=== PATIENT | male | born 1945 | race Caucasian/White ===

== ENCOUNTER 2017-07-03 11:46 | Emergency (ER) | payer MEDICARE, OTHER, SELFPAY ==
[2017-07-03 11:55] VITALS: BP 166/83; PULSE 60; RESP 16; TEMP 37.1; O2SAT 96; BMI 31.5
--- NOTE | 2017-07-03 12:12 | HMH.EDABDPAI ---
ED Disposition Clinical Impression: Calculus of kidney Disposition: Home, Self-Care Condition on Discharge: Good Instructions: DI for Acute Abdomen, DI for Kidney Stones Additional Instructions: Filter urine; if ANY concerns (such as intractable pain, unable to urinate, fever, any concerns at all) call [facility]rologist and let them know we spoke with Dr. Torres today. Telephone number is [phone]. Rx Percocet for intractable pain, Naproxen for mild pain, Zofran for vomiting. Dr. Torres's office will set up appointment for three days from , Thursday, July 06, 2017. Prescriptions: Oxycodone HCl/Acetaminophen [Percocet 5/325mg tablet] 2 tab PO Q6HP PRN #20 tab PRN Reason: Severe Pain Naproxen [EC-Naprosyn] 500 mg PO BID PRN #[address] MCLAIN Reason: pain Ondansetron [Zofran 4mg ODT] 4 mg PO TIDP PRN #10 tab.rapdis PRN Reason: nausea Referrals: Provider,Referral, MD [Primary Care Provider] - - Critical Care Critical Care Time: No Attestation: On 07/03/17, the high probability of a clinically significant, sudden or life threatening deterioration of the following system(s) required my full and direct attention, intervention and personal management. The time I documented below is in addition to time spent performing reported procedures but includes the following listed in this critical care notation. Medical Decision Making Vital Signs: 07/03/17 11:55 Temperature 98.7 F Temperature Source Oral Pulse Rate [Right Brachial] 60 Respiratory Rate 16 Blood Pressure [Right Arm] 166/83 Blood Pressure Mean [Right Arm] 110 Blood Pressure Source [Right Arm] Automatic Cuff Blood Pressure Position [Right Arm] Sitting 02 Sat by Pulse Oximetry 96 Oxygen Delivery Method Room Air - Lab Data Lab Results 07/03/17 12:30: Urine Color Yellow, Urine Appearance Clear, Urine pH 6.0, Ur Specific [place] >= 1.030, Urine Protein 100, Urine Glucose (UA) 250, Urine Ketones Trace, Urine Blood Trace-i, Urine Nitrate Negative, Urine Bilirubin Negative, Urine Urobilinogen 0.2, Ur Leukocyte Esterase Negative, Urine RBC 3-5, Urine WBC Occasional, Ur Squamous Epith Cells Occasional, Urine Bacteria 1+, Urine Mucus 1+ 07/03/17 12:45: WBC 12.0 H, RBC 4.11 L, Hgb 12.7 L, Hct 39.1 L, MCV 95.1 H, MCH 30.9, MCHC 32.5, RDW 13.6, Plt Count 208, MPV 8.0, Neut % (Auto) 82.2 H, Lymph % (Auto) 9.8 L, [place] % (Auto) 6.1, Eos % (Auto) 1.7, Baso % (Auto) 0.2, Neut # (Auto) 9.9 H, Lymph # (Auto) 1.2, [place] # (Auto) 0.7, Eos # (Auto) 0.2, Baso # (Auto) 0.0 07/03/17 12:45: BUN 15, Creatinine 1.53 H, Estimated Creat Clear 61, Estimated GFR 45 L, Est GFR ( Amer) 54 L Result diagrams: 07/03/17 12:45 07/03/17 12:45 Orders (Tests/Meds): ORDERS Category Date Time Status Amylase Stat Lab 07/03/17 12:45 Received Comprehensive Metabolic Panel Stat Lab 07/03/17 12:45 Received Lipase Stat Lab 07/03/17 12:45 Received - CT Data CT Scan: Abdomen, Pelvis Time Received: 13:[address] Reviewed: Yes: I have reviewed the patient's CT results - Physician Consults Physician Consulted: Dr. Torres Urology Reason -: Pt condition Comment/Response: Dr. Torres's office will call to schedule outpatient visit and surgery; ok to discharge with [facility] number in case any problems over the weekend - Blaise Inquiry Pt receiving controlled substance: Yes Blaise was queried for this patient: Yes Reference #:: [id number] Risks and benefits of using a controlled substance: were discussed with pt by me Abdominal Pain HPI - General Chief Complaint: Abdominal Pain Stated Complaint: left side pain Time Seen by Provider: 07/03/17 12:12 Mode of Arrival: Ambulatory Limitations: No Limitations Description of Symptoms (Recalled from ER Triage Doc. by RN): PT C/O LLQ PAIN THAT HAS BEEN ON AND OFF X4 DAYS BUT ADVISES THAT THE PAIN BECOME SEVERE LAST NIGHT - History of Present Illness HPI narrative: Sharp, intermittent left lower quadrant abdominal pain for the
--- NOTE | 2017-07-03 12:17 | CT_ITS ---
CT abdomen pelvis wo con CLINICAL INDICATION: Left lower quadrant pain ITS.REASON: LEFT PAIN ORDERING PHYSICIAN: Guillermina Mac MD PATIENT AGE: 71 years COMPARISON: None TECHNIQUE: Axial images obtained with sagittal and coronal reformats. PROCEDURE: Oral Contrast: None IV Contrast: None . FINDINGS: There are atelectatic changes in the lung bases. There are coronary artery calcifications. No focal liver lesion evident. Small hyperdensity is present along the posterior aspect of the gallbladder suggesting gallstones. The spleen and adrenal glands are unremarkable. There is a small hiatal hernia. Pancreas has an unremarkable unenhanced CT appearance. There is an 11 x 7 mm stone at the left ureterovesical junction causing moderate left hydronephrosis and hydroureter with stranding of the left perinephric and periureteral fat. There are bilateral renal cysts the largest on the left measuring up to 6 cm. Small area of hyperdensity is present in the lower pole the left kidney and may represent a hyperdense cyst at 1 cm There is mild fusiform dilatation of the mid abdominal aorta measuring up to 3.3 cm transverse and 3.1 cm AP. No evidence of retroperitoneal hemorrhage. There is mild dilatation of the proximal left common iliac measuring up to 1.9 cm and mild dilatation of the distal right common iliac measuring up to 1.9 cm. Reported prior appendectomy. There is diffuse diverticulosis of the descending and sigmoid colon. No evidence of diverticulitis. No intestinal obstruction or free air. No pelvic mass or focal inflammatory change evident. No acute bony anomalies. There are degenerative changes in the lumbar spine. IMPRESSION: 1. 11 x 7 mm left ureterovesical junction stone with moderate hydroureteronephrosis. 2. 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 3. Sigmoid diverticulosis. No evidence of diverticulitis. 4. Bilateral renal cysts
--- NOTE | 2017-07-03 12:17 | ED_ITS ---
ED Disposition Clinical Impression: Calculus of kidney Disposition: Home, Self-Care Condition on Discharge: Good Instructions: DI for Acute Abdomen, DI for Kidney Stones Additional Instructions: Filter urine; if ANY concerns (such as intractable pain, unable to urinate, fever, any concerns at all) call [facility] urologist and let them know we spoke with Dr. Torres today. Telephone number is [phone]. Rx Percocet for intractable pain, Naproxen for mild pain, Zofran for vomiting. Dr. Torres's office will set up appointment for three days from , Thursday, July 06, 2017. Prescriptions: Oxycodone HCl/Acetaminophen [Percocet 5/325mg tablet] 2 tab PO Q6HP PRN # 20 tab PRN Reason: Severe Pain Naproxen [EC-Naprosyn] 500 mg PO BID PRN #[address] tablet[address] MCLAIN Reason: pain Ondansetron [Zofran 4mg ODT] 4 mg PO TIDP PRN #10 tab.rapdis PRN Reason: nausea Referrals: Provider,Referral, MD [Primary Care Provider] - - Critical Care Critical Care Time: No Attestation: On 07/03/17, the high probability of a clinically significant, sudden or life threatening deterioration of the following system(s) required my full and direct attention, intervention and personal management. The time I documented below is in addition to time spent performing reported procedures but includes the following listed in this critical care notation. Medical Decision Making Vital Signs: 07/03/17 11:55 Temperature 98.7 F Temperature Source Oral Pulse Rate [Right Brachial] 60 Respiratory Rate 16 Blood Pressure [Right Arm] 166/83 Blood Pressure Mean [Right Arm] 110 Blood Pressure Source [Right Arm] Automatic Cuff Blood Pressure Position [Right Arm] Sitting 02 Sat by Pulse Oximetry 96 Oxygen Delivery Method Room Air - Lab Data Lab Results 07/03/17 12:30: Urine Color Yellow, Urine Appearance Clear, Urine pH 6.0, Ur Specific [place] >= 1.030, Urine Protein 100, Urine Glucose (UA) 250, Urine Ketones Trace, Urine Blood Trace-i, Urine Nitrate Negative, Urine Bilirubin Negative, Urine Urobilinogen 0.2, Ur Leukocyte Esterase Negative, Urine RBC 3-5 , Urine WBC Occasional, Ur Squamous Epith Cells Occasional, Urine Bacteria 1+, Urine Mucus 1+ 07/03/17 12:45: WBC 12.0 H, RBC 4.11 L, Hgb 12.7 L, Hct 39.1 L, MCV 95.1 H, MCH 30.9, MCHC 32.5, RDW 13.6, Plt Count 208, MPV 8.0, Neut % (Auto) 82.2 H, Lymph % (Auto) 9.8 L, [place] % (Auto) 6.1, Eos % (Auto) 1.7, Baso % (Auto) 0.2, Neut # ( Auto) 9.9 H, Lymph # (Auto) 1.2, [place] # (Auto) 0.7, Eos # (Auto) 0.2, Baso # ( Auto) 0.0 07/03/17 12:45: BUN 15, Creatinine 1.53 H, Estimated Creat Clear 61, Estimated GFR 45 L, Est GFR ( Amer) 54 L Result diagrams: 07/03/17 12:45 07/03/17 12:45 Orders (Tests/Meds): ORDERS Category Date Time Status Amylase Stat Lab 07/03/17 12:45 Received Comprehensive Metabolic Panel Stat Lab 07/03/17 12:45 Received Lipase Stat Lab 07/03/17 12:45 Received - CT Data CT Scan: Abdomen, Pelvis Time Received: 13:[address] Reviewed: Yes: I have reviewed the patient's CT results - Physician Consults Physician Consulted: Dr. Torres Urology Reason -: Pt condition Comment/Response: Dr. Torres's office will call to schedule outpatient visit and surgery; ok to discharge with [facility] number in case any problems over the weekend - Blaise Inquiry Pt receiving controlled substance: Yes Blaise was queried for this patient: Yes Reference #:: [id number] Risks and bene
[2017-07-03 12:37] LABS: Microscopic, Urine URINE MICROSCOPIC (MICROSCOPIC)
[2017-07-03 12:45] LABS: Appearance,Urine CLEAR (Clear); Bilirubin,Urine Negative (Negative); Blood, Urine TRACE-I (Negative); Color,Urine YELLOW (Yellow); Glucose,Urine (UA) 250 (Negative); Ketones,Urine TRACE (Negative); Leukocyte Esterase,Urine Negative (Negative); Nitrate,Urine Negative (Negative); Protein,Urine 100 (Negative); Specific Gravity, Urine >= 1.030 (1.005-1.030); Urobilinogen,Urine 0.2 EU/dl (0.2)
[2017-07-03 12:58] LABS: Basophils % 0.2 % (0.1-2.0); Eosinophils # 0.2 K/mm3 (0.0-0.4); Eosinophils % 1.7 % (0.1-12.0); Hematocrit 39.1 % (42.0-52.0); Hemoglobin 12.7 g/dL (14.1-18.0); Lymphocytes # 1.2 K/mm3 (0.7-4.5); Lymphocytes % 9.8 K/mm3 (10-50); Mean Corpuscular HGB Conc 32.5 g/dL (31.8-35.4); Mean Corpuscular Hemoglobin 30.9 pg (27.0-31.2); Mean Corpuscular Volume 95.1 fl (80-94); Monocytes # 0.7 K/mm3 (0.1-1.0); Monocytes % 6.1 % (1.7-9.3); Neutrophils # 9.9 K/mm3 (1.8-7.8); Neutrophils % 82.2 % (37.0-80.0); Platelet Count 208 K/mm3 (142-424); Red Blood Count 4.11 M/mm3 (4.60-6.20); Red Cell Distribution Width 13.6 % (11.5-17.5)
[2017-07-03 13:14] LABS: Bacteria,Urine 1+ /lpf; Mucus,Urine 1+ /lpf; Squamous Epithelial Cell,Urine Occasional #/hpf (0-5); WBC,Urine Occasional #/hpf (0-3)
[2017-07-03 13:35] LABS: Blood Urea Nitrogen 15 mg/dL (7-18); Creatinine Clearance Estimated 61 mL/min (0-300); Creatinine,Serum 1.53 mg/dL (0.70-1.30); Estimated Glomerular Filt Rate 45 ml/min (>60); GFR (African American) 54 ML/MIN (>60)
[2017-07-03 13:43] LABS: Alanine Aminotransferase 19 U/L (12-78); Albumin Level 3.7 gm/dL (3.4-5.0); Albumin/Globulin Ratio 1.1 (1.1-1.8); Alkaline Phosphatase 104 U/L (46-116); Amylase 49 U/L (25-125); Anion Gap 14.1 mEq/L (5-15); Aspartate Amino Transferase 14 U/L (15-37); Bilirubin,Total 0.9 mg/dL (0.2-1.0); Blood Urea Nitrogen 15 mg/dL (7-18); Calcium 8.4 mg/dL (8.5-10.1); Carbon Dioxide 28 mmol/L (21.0-32.0); Chloride 104 mmol/L (98-107); Creatinine Clearance Estimated 63 mL/min (0-300); Creatinine,Serum 1.47 mg/dL (0.70-1.30); Estimated Glomerular Filt Rate 47 ml/min (>60); GFR (African American) 57 ML/MIN (>60); Globulin 3.5 gm/dl (1.3-3.2); Glucose 159 mg/dL (74-106); Lipase 128 u/L (73-393); Potassium 4.1 mmoL/L (3.5-5.1); Sodium 142 mmol/L (136-145); Total Protein,Serum 7.2 gm/dL (6.4-8.2)
[2017-07-03 14:16] VITALS: BP 134/68; PULSE 69; RESP 16; TEMP 36.8; O2SAT 97
== END 2017-07-03 14:18 | disposition home or self-care (01) ==
PROVIDERS: Emergency Provider Emergency Medicine
DX: N20.0 Calculus of kidney (principal); E11.9 Type 2 diabetes mellitus without complications
CPT/HCPCS: 74176; 80053; 81001; 82150; 82565; 83690; 84520; 85025; 96374; 96375; 99284; J2405

== ENCOUNTER → 2018-02-16 10:08 | Outpatient (CLI) | payer MEDICARE, OTHER, SELFPAY ==
[2018-02-16 11:41] LABS: Anion Gap 12.8 mEq/L (5-15); Blood Urea Nitrogen 16 mg/dL (7-18); Calcium 8.7 mg/dL (8.5-10.1); Carbon Dioxide 30 mmol/L (21.0-32.0); Chloride 107 mmol/L (98-107); Creatinine,Serum 1.18 mg/dL (0.70-1.30); Estimated Glomerular Filt Rate 60 ml/min (>60); GFR (African American) 73 ML/MIN (>60); Glucose 176 mg/dL (74-106); Potassium 4.8 mmoL/L (3.5-5.1); Sodium 145 mmol/L (136-145)
== END ==
PROVIDERS: PCP Family Medicine; Visit Provider Internal Medicine
DX: Z98.890 Other specified postprocedural states (principal)
CPT/HCPCS: 36415; 80048

== ENCOUNTER → 2018-06-28 08:08 | Outpatient (CLI) | payer MEDICARE, OTHER, SELFPAY ==
--- NOTE | 2018-06-28 08:10 | US_ITS ---
US aorta HISTORY: Abdominal aortic aneurysm ITS.REASON: z COMPARISON: 07/03/2017 FINDINGS: There is mild fusiform dilatation of the abdominal aorta with some tortuosity with aorta measuring up to 3 cm in maximum AP dimension.. The common iliacs were not able to be visualized due to overlying bowel gas. IMPRESSION: Mild fusiform dilatation of the abdominal aorta at 3 cm
== END ==
PROVIDERS: PCP Family Medicine; Visit Provider Nurse Practitioner Family
DX: I11.9 Hypertensive heart disease without heart failure (principal); I25.10 Atherosclerotic heart disease of native coronary artery without angina pectoris; I71.4 Abdominal aortic aneurysm, without rupture
CPT/HCPCS: 76770

== ENCOUNTER → 2018-10-25 12:53 | Outpatient (CLI) | payer MEDICARE, OTHER, SELFPAY ==
--- NOTE | 2018-10-25 12:56 | CA_ITS ---
PROCEDURE: 2-D M-mode and color Doppler study INDICATIONS FOR THE TEST: Chest pain COPD Heart Murmur Tobacco Smoking Palpitations Fatigue Syncope Edema Hypertension+Diabetes Mellitus+ Rheumatic Fever SOB+THOMAS Obesity + Hyperlipidemia+ Family History HD Additional History BRADYCARDIA, CAD, AAA PATIENT INFORMATION HEIGHT: 69 WEIGHT:229 GENDER: Male B/P:121/83 2-D/M-MODE INTERPRETATION: 2-D MEASUREMENTS OBSERVED VALUES IN CMS Right Ventricular Dimension (RVDd) Interventricular Septum (Thickness)(IVsd) 1.5 Left Ventricular Internal Dimensions(LVIDd) 5.7 Left Ventricular Posterior Wall (Thickness)(LVPWd) 0.9 Aortic Root 4.1 Aortic Cusp Separation 2.2 Left Atrial Dimensions (LAD) 4.7 2D 1. Left atrium is mildly enlarged, left ventricle is normal size, mild concentric left ventricular hypertrophy, visually estimated ejection fraction of 55% with no regional wall motion abnormality. 2. The right atrium and right ventricle are mildly enlarged with normal contractility. 3. The aortic valve is minimally thickened and fibrosed. 4. The mitral and tricuspid valve leaflets are minimally thickened. 5. The pulmonic valve is poorly visualized. 6. No significant pericardial effusion noted. DOPPLER INTERROGATION: Doppler interrogation of the aortic, mitral and tricuspid valvular presence of mild mitral and tricuspid regurgitation, tricuspid regurgitation jet velocity is inadequate for calculation of the right ventricular systolic pressure, grade 2 diastolic dysfunction seen with tissue Doppler evidence of raised left atrial pressure. Inferior vena cava is not well visualized. CONCLUSION: 1. Mildly enlarged left atrium, normal left ventricular size, mild concentric left ventricular hypertrophy, visually estimated ejection fraction 55% with no regional wall motion abnormality, grade 2 diastolic dysfunction seen with tissue Doppler evidence of raised left atrial pressure. 2. Mild mitral and tricuspid regurgitation. 3. No significant pericardial effusion noted.
== END ==
PROVIDERS: PCP Family Medicine; Visit Provider Nurse Practitioner Family
DX: E11.9 Type 2 diabetes mellitus without complications (principal); E78.2 Mixed hyperlipidemia; I11.9 Hypertensive heart disease without heart failure; I25.10 Atherosclerotic heart disease of native coronary artery without angina pectoris; I25.2 Old myocardial infarction; I71.4 Abdominal aortic aneurysm, without rupture; I73.9 Peripheral vascular disease, unspecified; R00.1 Bradycardia, unspecified; R06.02 Shortness of breath; Z79.84 Long term (current) use of oral hypoglycemic drugs
CPT/HCPCS: 93306

== ENCOUNTER 2020-02-08 14:44 | Inpatient (IN) | payer MEDICARE, OTHER, SELFPAY ==
[2020-02-08] VITALS (14 sets, daily range): BP systolic 103–156; BP diastolic 55–78; PULSE 57–80; RESP 16–20; TEMP 36.8–38.9; O2SAT 90–97; BMI 31.5; BMI 30.4
--- NOTE | 2020-02-08 15:00 | ECG_ITS ---
APPROVED REPORT Exam: Resting ECG HR:79 bpm ECG Measurements Heart Rate 79 AXES AR 154 P 52 QRSd 94 QRS -17 QT 368 T 89 QTc 421 <Conclusion> Normal sinus rhythm Normal ECG Electronically signed by : Daron Valle, 02/11/2020 07:08:58
--- NOTE | 2020-02-08 15:16 | XR_ITS ---
PROCEDURE: XR CHEST PORTABLE CLINICAL HISTORY: weakness Generalized weakness COMPARISON: CR CXR CHEST(2 VIEWS-NOT PORTABLE) from 07/15/2013 CR CXR CHEST(2 VIEWS-NOT PORTABLE) from 08/04/2013 FINDINGS: Prior CABG. Borderline cardiomegaly. Increased density left lower lobe consistent with pneumonia with possible small effusion. No acute bony abnormalities. IMPRESSION: Left lower lobe pneumonia with possible small effusion Dictated by: Juan Pablo Foster MD 02/08/2020 16:29 Juan Pablo Foster MD in [place] 02/08/2020 16:29
[2020-02-08 15:26] LABS: Basophils % 0.2 % (0.1-2.0); Eosinophils # 0.1 K/mm3 (0.0-0.4); Eosinophils % 0.4 % (0.1-12.0); Hematocrit 37.3 % (42.0-52.0); Hemoglobin 12.8 g/dL (14.1-18.0); Lymphocytes # 0.9 K/mm3 (0.7-4.5); Lymphocytes % 5.7 % (10-50); Mean Corpuscular HGB Conc 34.2 g/dL (31.8-35.4); Mean Corpuscular Hemoglobin 31.9 pg (27.0-31.2); Mean Corpuscular Volume 93.4 fl (80-94); Mean Platelet Volume 8.5 fl (7.4-10.4); Monocytes # 0.7 K/mm3 (0.1-1.0); Monocytes % 4.4 % (1.7-9.3); Neutrophils % 89.3 % (37.0-80.0); Platelet Count 180 K/mm3 (142-424); Red Blood Count 3.99 M/mm3 (4.60-6.20); Red Cell Distribution Width 14.1 % (11.5-17.5); White Blood Count 15.6 K/mm3 (4.8-10.8)
[2020-02-08 15:27] LABS: Chloride 93 mmol/L (98-107); MANUAL DIFFERENTIAL MANUAL DIFFERENTIAL (MANUAL DIFF); Sodium 133 mmol/L (136-145)
[2020-02-08 15:28] LABS: Potassium 3.9 mmoL/L (3.5-5.1)
[2020-02-08 15:30] LABS: Blood Urea Nitrogen 20 mg/dl (9-20); Creatinine Clearance Estimated 81 mL/min (50-200); Estimated Glomerular Filt Rate 65 ml/min (>60); GFR (African American) 79 ML/MIN (>60)
[2020-02-08 15:31] LABS: Anion Gap 16.9 mEq/L (5-15); Carbon Dioxide 27 mmol/L (22.0-30.0); Glucose 240 mg/dl (74-100); Magnesium 1.9 mg/dl (1.6-2.3); Phosphorous 2.5 mg/dl (2.5-4.5)
--- NOTE | 2020-02-08 15:34 | HMH.EDGENADL ---
ED Disposition Clinical Impression: Pneumonia Qualifiers: Pneumonia type: due to unspecified organism Laterality: left Lung location: lower lobe of lung Qualified Code(s): J18.9 - Pneumonia, unspecified organism Disposition: Admitted As Inpatient Condition on Discharge: Fair Referrals: Daron Sapp MD [Primary Care Provider] - - Critical Care Critical Care Time: No Attestation: On 02/08/20, the high probability of a clinically significant, sudden or life threatening deterioration of the following system(s) required my full and direct attention, intervention and personal management. The time I documented below is in addition to time spent performing reported procedures but includes the following listed in this critical care notation. Medical Decision Making - Blaise Inquiry Pt receiving controlled substance: No Vital Signs: 02/08/20 14:44 02/08/20 15:42 02/08/20 16:00 Temperature 102.1 F H Temperature Source Oral Pulse Rate [Left Radial] 78 78 70 Respiratory Rate 19 18 Blood Pressure [Right Arm] 156/78 H 120/61 119/64 Blood Pressure Mean [Right Arm] 104 80 82 Blood Pressure Source [Right Arm] Automatic Cuff Blood Pressure Position [Right Arm] Sitting 02 Sat by Pulse Oximetry 92 L 92 L 90 L Oxygen Delivery Method Room Air Room Air Room Air - Lab Data Lab Results 02/08/20 15:07: WBC 15.6 H, RBC 3.99 L, Hgb 12.8 L, Hct 37.3 L, MCV 93.4, MCH 31.9 H, MCHC 34.2, RDW 14.1, Plt Count 180, MPV 8.5, Neut % (Auto) 89.3 H, Lymph % (Auto) 5.7 L, [place] % (Auto) 4.4, Eos % (Auto) 0.4, Baso % (Auto) 0.2, Neut # (Auto) 14.0 H, Lymph # (Auto) 0.9, [place] # (Auto) 0.7, Eos # (Auto) 0.1, Baso # (Auto) 0.0, Total Counted 100, Neutrophils % (Manual) 83 H, Band Neutrophils % 5.0, Lymphocytes % (Manual) 10, Monocytes % (Manual) 2, Platelet Estimate Normal, RBC Morphology Normal 02/08/20 15:07: Sodium 133 L, Potassium 3.9, Chloride 93 L, Carbon Dioxide 27, Anion Gap 16.9 H, BUN 20, Creatinine 1.10, Estimated Creat Clear 81, Estimated GFR 65, Est GFR ( Amer) 79, Glucose 240 H, Calcium 9.0, Phosphorus 2.5, Magnesium 1.9, TSH 0.80 02/08/20 15:07: SARS-CoV-2 IgG Ab (Rapid) Positive A, SARS-CoV-2 IgM Ab (Rapid) Negative 02/08/20 15:07: Troponin I 0.04 H 02/08/20 15:07: NT-Pro-B Natriuret Pep 1100 H Result diagrams: 02/08/20 15:07 02/08/20 15:07 Orders (Tests/Meds): ED MEDICATIONS Generic Name Dose Route Start Last Admin Trade Name Freq PRN Reason Stop Dose Admin Levofloxacin/Dextrose 750 mg in 150 mls @ 100 mls/hr 02/08/20 17:00 Levofloxacin 750mg/150ml Premix IV 02/22/20 16:59 Q24H [facility] Protocol Miscellaneous 1 each 02/08/20 17:00 Vancomycin Consult Request * 03/09/20 16:59 CONSULT PHARMACY OLVIN Discontinued Medications Generic Name Dose Route Start Last Admin Trade Name Freq PRN Reason Stop Dose Admin Acetaminophen 650 mg 02/08/20 15:43 02/08/20 15:44 Acetaminophen 325mg Tab PO 02/08/20 15:44 650 mg ONCE ONE Administration Lactated Ringer's 1,000 mls @ 999 mls/hr 02/08/20 15:30 02/08/20 15:30 Lactated Ringer's 1000 Ml Bag IV 02/08/20 16:30 999 mls/hr .Q1H1M OLVIN Administration Ibuprofen 600 mg 02/08/20 15:43 02/08/20 15:44 Motrin 600mg Tablet PO 02/08/20 15:44 600 mg ONCE ONE Administration ORDERS Category Date Time Status Basic Metabolic Panel AMLAB Lab 02/09/20 06:00 Ordered Complete Blood Count Auto Diff AMLAB Lab 02/09/20 06:00 Ordered Lactic Acid Stat Lab 02/08/20 15:07 Received Troponin I Q3H Lab 02/08/20 19:30 Ordered Troponin I Q3H Lab 02/08/20 22:30 Ordered Urinalysis and Microscopic Stat Lab 02/08/20 15:16 Ordered Blood Culture Stat Micro 02/08/20 15:07 Received Medical Decision Narrative: In summary patient presents for fever and weakness. And vital signs significant for elevated temperature to 102, not tachycardic, not hypotensive. Vital signs likely attributed to infection and the fact the patient is on a b
[2020-02-08 15:52] LABS: Coronavirus 19 IgG Antibody Positive (Negative); Coronavirus 19 IgM Antibody Negative (Negative)
[2020-02-08 16:00] LABS: Lymphocytes % 10 % (10-50); Monocytes % 2 % (2-9); Neutrophils % 83 % (42-76); Platelet Estimate Normal; RBC Morphology Normal; Total Cells Counted 100
--- NOTE | 2020-02-08 16:49 | PC.NURSE ---
PAGED DR ROJAS OFFICE FOR ON DR GOINS, PAGED DR CELIS AT THIS TIME
[2020-02-08 16:54] LABS: Troponin I 0.04 ng/ml (0.00-0.034)
--- NOTE | 2020-02-08 16:54 | PC.NURSE ---
DR PONCE IS SPEAKING TO DR CELIS ABOUT ADMISSION DR CELIS IS OK WITH ADMISSION BUT REQUEST THE RAPID COVID TEST
[2020-02-08 16:59] LABS: NT Pro Brain Natriuretic Pep. 1100 pg/mL (0-450)
[2020-02-08 17:05] LABS: Lactic Acid 2.3 mmol/L (0.7-2.1)
[2020-02-08 17:07] LABS: Microscopic, Urine URINE MICROSCOPIC (MICROSCOPIC)
[2020-02-08 17:09] LABS: Appearance,Urine SL CLOUDY (Clear); Blood, Urine 2+ (Negative); Color,Urine DK YELLOW (Yellow); Glucose,Urine (UA) 2+ (Negative); Ketones,Urine 1+ (Negative); Leukocyte Esterase,Urine Negative (Negative); Nitrate,Urine Negative (Negative); Protein,Urine 2+ (Negative); Specific Gravity, Urine >= 1.030 (1.005-1.030)
--- NOTE | 2020-02-08 17:17 | PC.NURSE ---
LAB HERE COLLECTING COVID NASAL SWAB
--- NOTE | 2020-02-08 17:21 | PC.NURSE ---
ASCENCION FROM PHARMACY CONSULTED FOR VANC DOSING, 2G Q24H FOR NOW AND PHARMACY WILL ADJUST IN THE AM.
--- NOTE | 2020-02-08 17:51 | PC.NURSE ---
LAB COLLECTED COVID SWAB, PT BOARDING IN ER PENDING COVID RESULTS BEFORE ADMISSION.
[2020-02-08 18:52] LABS: Bilirubin,Urine 1+ (Negative)
[2020-02-08 18:59] LABS: Bacteria,Urine Trace /lpf; Squamous Epithelial Cell,Urine Occasional #/hpf (0-5); WBC,Urine Occasional #/hpf (0-3)
[2020-02-08 20:26] LABS: Troponin I 0.04 ng/ml (0.00-0.034)
--- NOTE | 2020-02-08 20:36 | PC.NURSE ---
ASKED ER STAFF ABOUT SEPSIS CRITERIA AND NEED FOR PT TO NEED FLUID BOLUS DUE TO ELEVATED WBC, TEMPERATURE, AND ORGAN DYSFUNCTION. THEY STATED PT DIDN'T NEED ANYTHING ELSE AT THIS TIME.
--- NOTE | 2020-02-08 20:36 | PC.NURSE ---
report given to BERNA Carnes
--- NOTE | 2020-02-08 20:53 | PC.NURSE ---
patient up to floor via wheelchair
[2020-02-08 20:56] LABS: Reflex Lactic Add Lactic Reflex
[2020-02-08 21:52] LABS: Lactic Acid Follow Up (RFLX 1) 1.7 mmol/L (0.7-2.1)
[2020-02-08 23:22] LABS: Troponin I 0.04 ng/ml (0.00-0.034)
[2020-02-09] VITALS (11 sets, daily range): BP systolic 99–133; BP diastolic 55–66; PULSE 68–87; RESP 16–19; TEMP 37.4–38.5; O2SAT 88–94
--- NOTE | 2020-02-09 03:02 | PC.NURSE ---
A&OX4. PT HAS TOLERATED ROOM AIR WELL THROUGHOUT SHIFT. RESPIRATIONS REGULAR AND UNLABORED. WHEEZES AUSCULTATED TO BILATERAL LOWER BASES. OCCASIONAL PRODUCTIVE COUGH NOTED. ACTIVE BOWEL SOUNDS HEARD IN ALL 4 QUADRANTS. SOFT AND NONTENDER ABDOMEN. NO BM THUS FAR. PT AMBULATES INDEPENDENTLY TO THE RESTROOM AND IN THE BED. HAND HISTOTECHNOLOGIST EQUAL. +2 PULSES NOTED. PT HAS REMAINED ON TELE THROUGHOUT SHIFT. NO EDEMA NOTED. PT SPIKED A FEVER OF 101.3 ORALLY AND WAS ADMINISTERED 650MG ACETAMINOPHEN NEEDED. PT RECEIVED VANCOMYCIN THIS SHIFT AND TOLERATED WELL. PT HASN'T REPORTED SOB, CHEST PAIN, OR ANY OTHER PAIN THUS FAR. PT IS CURRENTLY SITTING IN THE CHAIR W CALL LIGHT WITHIN REACH. VSS. WILL CONTINUE TO MONITOR.
[2020-02-09 06:41] LABS: Basophils % 0.2 % (0.1-2.0); Eosinophils % 0.2 % (0.1-12.0); Hematocrit 35.8 % (42.0-52.0); Hemoglobin 11.9 g/dL (14.1-18.0); Lymphocytes # 0.9 K/mm3 (0.7-4.5); Lymphocytes % 5.9 % (10-50); Mean Corpuscular HGB Conc 33.2 g/dL (31.8-35.4); Mean Corpuscular Hemoglobin 31.5 pg (27.0-31.2); Mean Corpuscular Volume 94.8 fl (80-94); Mean Platelet Volume 8.7 fl (7.4-10.4); Monocytes # 0.6 K/mm3 (0.1-1.0); Monocytes % 4.3 % (1.7-9.3); Neutrophils # 12.9 K/mm3 (1.8-7.8); Neutrophils % 89.5 % (37.0-80.0); Platelet Count 170 K/mm3 (142-424); Red Blood Count 3.77 M/mm3 (4.60-6.20); Red Cell Distribution Width 14.2 % (11.5-17.5); White Blood Count 14.5 K/mm3 (4.8-10.8)
[2020-02-09 06:44] LABS: Anion Gap 16.1 mEq/L (5-15); Blood Urea Nitrogen 23 mg/dl (9-20); Calcium 8.8 mg/dl (8.4-10.2); Carbon Dioxide 29 mmol/L (22.0-30.0); Chloride 95 mmol/L (98-107); Creatinine Clearance Estimated 66 mL/min (50-200); Estimated Glomerular Filt Rate 54 ml/min (>60); GFR (African American) 65 ML/MIN (>60); Glucose 144 mg/dl (74-100); Potassium 4.1 mmoL/L (3.5-5.1); Sodium 136 mmol/L (136-145)
[2020-02-09 06:48] LABS: MANUAL DIFFERENTIAL MANUAL DIFFERENTIAL (MANUAL DIFF)
--- NOTE | 2020-02-09 07:09 | HMH.HP ---
*Admission Date: 02/08/20 *Chief complaint: Weakness *History of present illness: 74-year-old male with history of diabetes, hypertension, coronary artery disease presented to the emergency department with 2 days of weakness and chills. Patient tells me he was so weak he was not eating or drinking and was having a difficult time ambulating within his home. Work-up in the emergency department revealed a left lower lobe pneumonia. Patient denies shortness of breath, cough, orthopnea, paroxysmal nocturnal dyspnea in the ER and continues to deny these complaints this morning. He is maintained appropriate O2 sats on room air. Patient was admitted for inpatient treatment of pneumonia. As part of patient's work-up patient did receive coronavirus antibody testing and was IgG positive. He denies any recent respiratory infections. The cover the possibility of a superimposed bacterial pneumonia after a viral infection patient was started on vancomycin in addition to the Levaquin he was ordered. This morning the patient reports minimal improvement. He is sitting up in the bed in the recliner. He continues to denies shortness of breath or cough. He is continued to have fevers overnight that responded to Tylenol [facility] History I have reviewed the patient's past medical history: Yes Medical History: Reports:: Coronary Artery Disease, Diabetes Mellitus Type 2, Hyperlipidemia, Hypertension, Kidney Stones, Myocardial Infarction, Peripheral Artery Disease Denies:: Cancer, Diabetes Mellitus Type 1, MRSA *Have you ever received a pneumonia vaccine?: Yes *Have you received a flu vaccine this season?: Yes Other Medical History: Reports: Other Other Surgeries: Yes: Appendectomy, Cardiac Catheterization, Open Heart Surgery, Sinus Surgery, Other Amputation: No Fractures: No - *Social History Last grade of school completed: Some college Smoking Status: Never smoker Alcohol Intake: current Alcohol Intake Frequency:: holidays/special occasions only Substance Use Type: denies use *Occupational Status:: retired Housing: house Household Members: none (Patient is ) *Travel in the last 8 weeks: None Family Hx:: No significant family history Review of Systems - Constitutional Reports anorexia, Reports body ache(s), Reports chills, Reports daytime sleepiness, Reports fatigue, Reports lack of energy, Reports malaise, Reports weakness, Denies excessive sweating, Denies headache(s) - Eyes Denies blind spots, Denies blurry vision - ENT Denies abnormal hearing, Denies bleeding gums - *Cardiovascular Denies chest pain, Denies chest pain at rest, Denies chest pain with activity, Denies leg pain with activity, Denies excessive sweating, Denies shortness of breath with activity - *Respiratory Denies change in phlegm color, Denies chest congestion, Denies cough, Denies shortness of breath, Denies shortness of breath with activity - *Gastrointestinal Denies abdominal pain, Denies belching, Denies bloating, Denies change in bowel habits - *Genitourinary Denies difficulty urinating, Denies difficulty with ejaculations Meds Home Medications Medication Instructions Recorded Confirmed Type albuterol sulfate 90 mcg/actuation 1 puff INHALATION Q6H 07/16/17 02/08/20 History aerosol inhaler amlodipine 10 mg tablet 10 mg PO .Q DAY tab 07/16/17 02/08/20 History carvedilol 6.25 mg tablet 6.25 mg PO BID 07/16/17 02/08/20 History glipizide 10 mg tablet 10 mg PO .Q DAY tab 07/16/17 02/08/20 History metformin 1,000 mg tablet 1,000 mg PO BID 07/16/17 02/08/20 History sitagliptin 100 mg tablet 100 mg PO .Q DAY tab 07/16/17 02/08/20 History RX: Atorvastatin Calcium [Lipitor 80 mg PO .QDAY 02/08/20 02/08/20 History 80mg Tablet] Allergies Allergy/AdvReac Type Severity Reaction Status Date / Time No Known Allergies Allergy Verified 02/22/19 13:18 Exam Vital signs and Labs for Last 24 Hours: Temp Pulse Resp BP Pulse Ox 99.9 F H 69 18 99/55 L 9
--- NOTE | 2020-02-09 07:23 | P.CONPHA_ITS ---
[facility] Pharm[facility] VTE Monitoring - Patient Demographics Admission date: 02/08/20 Report Date: 02/09/20 Time: 07:23 Allergies/Adverse Reactions: Patient Allergies No Known Allergies Allergy (Verified 02/22/19 13:18) Height: 1.78 m Weight: 96.615 kg Patient Problems: Current Active Problems Pneumonia (Acute) - VTE Risk Labs: VTE Related Lab Results Hgb 11.9 g/dL (14.1-18.0) L 02/09/20 06:12 Hct 35.8 % (42.0-52.0) L 02/09/20 06:12 Plt Count 170 K/mm3 (142-424) 02/09/20 06:12 BUN 23 mg/dl (9-20) H 02/09/20 06:12 Creatinine 1.30 mg/dl (0.66-1.25) H 02/09/20 06:12 Estimated Creat Clear 66 mL/min (50-200) 02/09/20 06:12 Was VTE Risk Assessment Performed: Yes VTE Score: 4 VTE Risk Level: Low Risk Clinical Trial Participant: No - Prophylaxis VTE Prophylaxis Ordered?: Yes Types of VTE Prophylaxis: TEDS Knee High
--- NOTE | 2020-02-09 07:30 | HMH.PHAINT ---
home medication reconciliation completed using list from home pharmacy and pt interview
[2020-02-09 07:44] LABS: Alanine Aminotransferase 24 U/L (12-78); Albumin Level 3.6 g/dl (3.5-5.0); Alkaline Phosphatase 116 U/L (38-126); Aspartate Amino Transferase 42 U/L (17-59); Bilirubin,Indirect 1.1 mg/dL (0.0-0.9); Bilirubin,Total 2.1 mg/dl (0.2-1.3); Bilirubin,Unconjugated 1.1 mg/dL (0.0-1.1); Total Protein,Serum 7.1 g/dl (6.3-8.2)
[2020-02-09 08:10] LABS: Lymphocytes % 5 % (10-50); Monocytes % 4 % (2-9); Neutrophils % 91 % (42-76); Platelet Estimate Normal; RBC Morphology Normal; Total Cells Counted 100
--- NOTE | 2020-02-09 08:16 | HMH.PHACONS ---
- Pharmacy Consult Date: 02/09/20 Time: 08:16 Referring provider: DR. GOINS Reason for Consult:: VANCOMYCIN DOSING Allergies and ADEs:: Allergies Allergy/AdvReac Type Severity Reaction Status Date / Time No Known Allergies Allergy Verified 02/22/19 13:18 Home Medications:: Home Medications Medication Instructions Recorded Confirmed Type albuterol sulfate 90 mcg/actuation 1 puff INHALATION Q6H 07/16/17 02/08/20 History aerosol inhaler amlodipine 10 mg tablet 10 mg PO DAILY tab 07/16/17 02/09/20 History carvedilol 6.25 mg tablet 6.25 mg PO BID 07/16/17 02/09/20 History glipizide 10 mg tablet 10 mg PO DAILY tab 07/16/17 02/09/20 History metformin 1,000 mg tablet 1,000 mg PO BID 07/16/17 02/09/20 History sitagliptin 100 mg tablet 100 mg PO DAILY tab 07/16/17 02/09/20 History Atorvastatin Calcium [Lipitor 80mg 80 mg PO DAILY 02/08/20 02/09/20 History Tablet] Furosemide [Furosemide 20mg Tab] 20 mg PO DAILY 02/09/20 02/09/20 History Omeprazole [Omeprazole 20mg 20 mg PO DAILY 02/09/20 02/09/20 History Capsule] Height: 1.78 m Weight: 96.615 kg Laboratory Results:: Laboratory Results - last 24 hr 02/08/20 15:07: WBC 15.6 H, RBC 3.99 L, Hgb 12.8 L, Hct 37.3 L, MCV 93.4, MCH 31.9 H, MCHC 34.2, RDW 14.1, Plt Count 180, MPV 8.5, Neut % (Auto) 89.3 H, Lymph % (Auto) 5.7 L, [place] % (Auto) 4.4, Eos % (Auto) 0.4, Baso % (Auto) 0.2, Neut # (Auto) 14.0 H, Lymph # (Auto) 0.9, [place] # (Auto) 0.7, Eos # (Auto) 0.1, Baso # (Auto) 0.0, Total Counted 100, Neutrophils % (Manual) 83 H, Band Neutrophils % 5.0, Lymphocytes % (Manual) 10, Monocytes % (Manual) 2, Platelet Estimate Normal, RBC Morphology Normal 02/08/20 15:07: Sodium 133 L, Potassium 3.9, Chloride 93 L, Carbon Dioxide 27, Anion Gap 16.9 H, BUN 20, Creatinine 1.10, Estimated Creat Clear 81, Estimated GFR 65, Est GFR ( Amer) 79, Glucose 240 H, Calcium 9.0, Phosphorus 2.5, Magnesium 1.9, TSH 0.80 02/08/20 15:07: SARS-CoV-2 IgG Ab (Rapid) Positive A, SARS-CoV-2 IgM Ab (Rapid) Negative 02/08/20 15:07: Troponin I 0.04 H 02/08/20 15:07: NT-Pro-B Natriuret Pep 1100 H 02/08/20 15:07: Lactate 2.3 H 02/08/20 16:46: Urine Color Dk yellow, Urine Appearance Sl cloudy, Urine pH 6.0, Ur Specific [place] >= 1.030, Urine Protein 2+, Urine Glucose (UA) 2+, Urine Ketones 1+, Urine Blood 2+, Urine Nitrate Negative, Urine Bilirubin 1+ A, Urine Urobilinogen 2.0, Ur Leukocyte Esterase Negative, Urine WBC Occasional, Ur Squamous Epith Cells Occasional, Urine Bacteria Trace 02/08/20 18:55: Troponin I 0.04 H 02/08/20 21:36: Lactate 1.7 02/08/20 22:37: Troponin I 0.04 H 02/09/20 06:12: WBC 14.5 H, RBC 3.77 L, Hgb 11.9 L, Hct 35.8 L, MCV 94.8 H, MCH 31.5 H, MCHC 33.2, RDW 14.2, Plt Count 170, MPV 8.7, Neut % (Auto) 89.5 H, Lymph % (Auto) 5.9 L, [place] % (Auto) 4.3, Eos % (Auto) 0.2, Baso % (Auto) 0.2, Neut # (Auto) 12.9 H, Lymph # (Auto) 0.9, [place] # (Auto) 0.6, Eos # (Auto) 0.0, Baso # (Auto) 0.0, Total Counted 100, Neutrophils % (Manual) 91 H, Lymphocytes % (Manual) 5 L, Monocytes % (Manual) 4, Platelet Estimate Normal, RBC Morphology Normal 02/09/20 06:12: Sodium 136, Potassium 4.1, Chloride 95 L, Carbon Dioxide 29, Anion Gap 16.1 H, BUN 23 H, Creatinine 1.30 H, Estimated Creat Clear 66, Estimated GFR 54 L, Est GFR ( Amer) 65, Glucose 144 H D, Calcium 8.8 02/09/20 06:12: Total Bilirubin 2.1 H, Direct Bilirubin 1.0 H, Conjugated Bilirubin 0.0, Indirect Bilirubin 1.1 H, Unconjugated Bilirubin 1.1, AST 42, ALT 24, Alkaline Phosphatase 116, Total Protein 7.1, Albumin 3.6 Medical History: Reports:: Coronary Artery Disease, Diabetes Mellitus Type 2, Hyperlipidemia, Hypertension, Kidney Stones, Myocardial Infarction, Peripheral Artery Disease Denies:: Cancer, Diabetes Mellitus Type 1, MRSA Assessment and Plan (1) Pneumonia Current visit: Yes Status: Acute Qualifiers: Pneumonia type: due to unspecified organism Laterality: left Lung location: lower lobe of lung Qualified Code(s): J18.9 - P
--- NOTE | 2020-02-09 10:30 | PC.NURSE ---
pt given treatment with hypertonic saline at this time. No results. Pt has cup at bedside.
--- NOTE | 2020-02-09 18:05 | PC.NURSE ---
[employer] pump cleared at this time w/ A BERNA Jung. Pt has used 8.4 mg this shift, tolerating well.
--- NOTE | 2020-02-09 19:38 | PC.NURSE ---
No acute changes this shift. Pt remains on room air. Assisted to shower earlier this shift, pt states that it took a lot out of me and has been resting up to chair since. No needs voiced. Sputum collected this shift. Report given to Mook Capone RN.
[2020-02-10] VITALS (8 sets, daily range): BP systolic 108–132; BP diastolic 51–65; PULSE 66–80; RESP 16–18; TEMP 36.6–39.4; O2SAT 88–98; BMI 29.9
--- NOTE | 2020-02-10 04:38 | PC.NURSE ---
A&OX4. PT HAS TOLERATED ROOM AIR WELL THROUGHOUT SHIFT. RESPIRATIONS REGULAR AND UNLABORED. LUNG SOUNDS DIMINISHED IN BILATERAL LOWER BASES. NO COUGH NOTED. ACTIVE BOWEL SOUNDS HEARD IN ALL 4 QUADRANTS. SOFT AND NONTENDER ABDOMEN. NO BM REPORTED THUS FAR. PT AMBULATES INDEPENDENTLY IN THE ROOM AND MOVES INDEPENDENTLY IN BED. HAND ENROLLMENT PROCESSOR EQUAL. +2 PULSES NOTED THROUGHOUT. PT REPORTED NAUSEA ONCE THIS SHIFT AND RECEIVED ZOFRAN 4MG NEEDED PER AUG. ON REASSESSMENT, PT WAS RESTING W EYES CLOSED. NO REPORTS OF PAIN OR SOB THROUGHOUT SHIFT. PT SPIKED A FEVER ONCE AND RECEIVED ACETAMINOPHEN 650MG. NO EDEMA NOTED. PT IS CURRENTLY LAYING IN BED SLEEPING. CALL LIGHT WITHIN REACH. BED IN LOWEST POSITION. VSS. WILL CONTINUE TO MONITOR.
[2020-02-10 06:15] LABS: Basophils % 0.2 % (0.1-2.0); Eosinophils % 0.3 % (0.1-12.0); Hematocrit 33.8 % (42.0-52.0); Hemoglobin 11.3 g/dL (14.1-18.0); Lymphocytes % 6.8 % (10-50); Mean Corpuscular HGB Conc 33.3 g/dL (31.8-35.4); Mean Corpuscular Hemoglobin 31.7 pg (27.0-31.2); Mean Corpuscular Volume 95.3 fl (80-94); Mean Platelet Volume 8.6 fl (7.4-10.4); Monocytes # 0.6 K/mm3 (0.1-1.0); Monocytes % 4.4 % (1.7-9.3); Neutrophils % 88.3 % (37.0-80.0); Platelet Count 190 K/mm3 (142-424); Red Blood Count 3.55 M/mm3 (4.60-6.20); Red Cell Distribution Width 14.1 % (11.5-17.5); White Blood Count 14.7 K/mm3 (4.8-10.8)
[2020-02-10 06:17] LABS: MANUAL DIFFERENTIAL MANUAL DIFFERENTIAL (MANUAL DIFF)
[2020-02-10 06:21] LABS: Chloride 101 mmol/L (98-107); Potassium 3.7 mmoL/L (3.5-5.1); Sodium 136 mmol/L (136-145)
[2020-02-10 06:23] LABS: Alanine Aminotransferase 20 U/L (12-78); Aspartate Amino Transferase 34 U/L (17-59); Bilirubin,Direct 0.6 mg/dl (0.0-0.4); Bilirubin,Indirect 0.6 mg/dL (0.0-0.9); Bilirubin,Total 1.2 mg/dl (0.2-1.3); Bilirubin,Unconjugated 0.6 mg/dL (0.0-1.1)
[2020-02-10 06:24] LABS: Albumin Level 3.1 g/dl (3.5-5.0); Alkaline Phosphatase 91 U/L (38-126); Anion Gap 11.7 mEq/L (5-15); Blood Urea Nitrogen 21 mg/dl (9-20); Calcium 8.1 mg/dl (8.4-10.2); Carbon Dioxide 27 mmol/L (22.0-30.0); Creatinine Clearance Estimated 65 mL/min (50-200); Estimated Glomerular Filt Rate 54 ml/min (>60); GFR (African American) 65 ML/MIN (>60); Glucose 116 mg/dl (74-100); Total Protein,Serum 6.2 g/dl (6.3-8.2)
--- NOTE | 2020-02-10 07:09 | HMH.ACPN2 ---
Internal Medicine - PN: Subj *Date: 02/10/20 *Time: 07:09 Interval history: Patient has no complaints this morning. He admits he feels weak. He notes some mild dyspnea. He still does not have any significant cough. Patient has continued to have fevers over the last 24 hours although they are lower than on admission. Exam Vital signs and Labs for Last 24 Hours: Temp Pulse Resp BP Pulse Ox 100.0 F H 79 16 123/65 91 L 02/10/20 04:00 02/10/20 04:00 02/10/20 04:00 02/10/20 04:00 02/10/20 04:00 Laboratory Results - last 24 hr 02/09/20 06:12: Total Counted 100, Neutrophils % (Manual) 91 H, Lymphocytes % (Manual) 5 L, Monocytes % (Manual) 4, Platelet Estimate Normal, RBC Morphology Normal 02/09/20 06:12: Total Bilirubin 2.1 H, Direct Bilirubin 1.0 H, Conjugated Bilirubin 0.0, Indirect Bilirubin 1.1 H, Unconjugated Bilirubin 1.1, AST 42, ALT 24, Alkaline Phosphatase 116, Total Protein 7.1, Albumin 3.6 02/10/20 05:58: WBC 14.7 H, RBC 3.55 L, Hgb 11.3 L, Hct 33.8 L, MCV 95.3 H, MCH 31.7 H, MCHC 33.3, RDW 14.1, Plt Count 190, MPV 8.6, Neut % (Auto) 88.3 H, Lymph % (Auto) 6.8 L, [place] % (Auto) 4.4, Eos % (Auto) 0.3, Baso % (Auto) 0.2, Neut # (Auto) 13.0 H, Lymph # (Auto) 1.0, [place] # (Auto) 0.6, Eos # (Auto) 0.0, Baso # (Auto) 0.0 02/10/20 05:58: Sodium 136, Potassium 3.7, Chloride 101, Carbon Dioxide 27, Anion Gap 11.7, BUN 21 H, Creatinine 1.30 H, Estimated Creat Clear 65, Estimated GFR 54 L, Est GFR ( Amer) 65, Glucose 116 H, Calcium 8.1 L 02/10/20 05:58: Total Bilirubin 1.2, Direct Bilirubin 0.6 H, Conjugated Bilirubin 0.0, Indirect Bilirubin 0.6, Unconjugated Bilirubin 0.6, AST 34, ALT 20, Alkaline Phosphatase 91, Total Protein 6.2 L, Albumin 3.1 L D I & O for Last 24 hours: Intake & Output 02/07/20 02/08/20 02/09/20 02/10/20 11:59 11:59 11:59 11:59 Intake Total 610 / 610 1043 / 1043 Balance 610 / 610 1043 / 1043 Weight 213 lb 209 lb 3 oz Microbiology Reports for the Last 24 Hours: Microbiology 02/09/20 11:13 Sputum - Expectorated Sputum Gram Stain - Final Narrative: Patient appears comfortable. However he is quite weak as he has trouble leaning forward in the chair under his own strength. Heart has a regular rate and rhythm. Lung exam reveals rales in the lower lateral left lung with distant breath sounds in the left base Assessment and Plan (1) Pneumonia Current visit: Yes Status: Acute Qualifiers: Pneumonia type: due to unspecified organism Laterality: left Lung location: lower lobe of lung Qualified Code(s): J18.9 - Pneumonia, unspecified organism Category: Medical Code(s): J18.9 - Pneumonia, unspecified organism (2) CAD (coronary artery disease) Current visit: No Status: Chronic Qualifiers: Coronary Disease-Associated Artery/Lesion type: [place] artery [place] vs. transplanted heart: [place] heart Associated angina: without angina Qualified Code(s): I25.10 - Atherosclerotic heart disease of [place] coronary artery without angina pectoris Category: Medical Code(s): I25.10 - Atherosclerotic heart disease of [place] coronary artery without angina pectoris (3) Diabetes mellitus Current visit: No Status: Chronic Qualifiers: Diabetes mellitus type: type 2 Diabetes mellitus penitentiary insulin use: without superintendent container terminal use Diabetes mellitus complication status: without complication Qualified Code(s): E11.9 - Type 2 diabetes mellitus without complications Category: Medical Code(s): E11.9 - Type 2 diabetes mellitus without complications (4) Hypertensive heart disease without heart failure Current visit: No Status: Chronic Category: Medical Code(s): I11.9 - Hypertensive heart disease without heart failure (5) Old myocardial infarction Current visit: No Status: Chronic Category: Medical Code(s): I25.2 - Old myocardial infarction - Assessment and plan all Dx Assessment and Plan for all problems:: 1. Continue broad
[2020-02-10 08:07] LABS: Lymphocytes % 5 % (10-50); Monocytes % 2 % (2-9); Neutrophils % 82 % (42-76); Platelet Estimate Normal; RBC Morphology Normal; Total Cells Counted 100
--- NOTE | 2020-02-10 18:55 | PC.NURSE ---
ALERT AND ORIENTED X4. UP TO CHAIR AND AMBULATES INDEPENDENTLY IN ROOM. NO COMPLAINTS VOICED. VSS. WILL CONTINUE TO MONITOR
--- NOTE | 2020-02-10 19:10 | PC.NURSE ---
report given to dmitri
--- NOTE | 2020-02-10 20:00 | PC.NURSE ---
Primary RN was notified of elevated temp and low O2
[2020-02-11] VITALS (7 sets, daily range): BP systolic 114–145; BP diastolic 68–82; PULSE 67–81; RESP 16–20; TEMP 36.7–37.3; O2SAT 90–94; BMI 29.3
--- NOTE | 2020-02-11 03:07 | PC.NURSE ---
Pt has slept well this shift. Denies soa/pain. VSS.
[2020-02-11 06:15] LABS: Chloride 103 mmol/L (98-107); Potassium 3.7 mmoL/L (3.5-5.1); Sodium 138 mmol/L (136-145)
[2020-02-11 06:18] LABS: Anion Gap 10.7 mEq/L (5-15); Blood Urea Nitrogen 21 mg/dl (9-20); Carbon Dioxide 28 mmol/L (22.0-30.0); Creatinine Clearance Estimated 75 mL/min (50-200); Estimated Glomerular Filt Rate 65 ml/min (>60); GFR (African American) 79 ML/MIN (>60)
[2020-02-11 06:19] LABS: Basophils % 0.3 % (0.1-2.0); Calcium 8.7 mg/dl (8.4-10.2); Eosinophils # 0.1 K/mm3 (0.0-0.4); Eosinophils % 0.5 % (0.1-12.0); Glucose 167 mg/dl (74-100); Hematocrit 34.1 % (42.0-52.0); Hemoglobin 11.5 g/dL (14.1-18.0); Lymphocytes # 1.1 K/mm3 (0.7-4.5); Lymphocytes % 8.5 % (10-50); Mean Corpuscular HGB Conc 33.7 g/dL (31.8-35.4); Mean Corpuscular Hemoglobin 31.6 pg (27.0-31.2); Mean Corpuscular Volume 93.9 fl (80-94); Mean Platelet Volume 8.4 fl (7.4-10.4); Monocytes # 0.7 K/mm3 (0.1-1.0); Monocytes % 5.8 % (1.7-9.3); Neutrophils # 10.7 K/mm3 (1.8-7.8); Platelet Count 219 K/mm3 (142-424); Red Blood Count 3.63 M/mm3 (4.60-6.20); Red Cell Distribution Width 14.5 % (11.5-17.5); White Blood Count 12.6 K/mm3 (4.8-10.8)
[2020-02-11 06:23] LABS: MANUAL DIFFERENTIAL MANUAL DIFFERENTIAL (MANUAL DIFF)
[2020-02-11 07:33] LABS: Lymphocytes % 14 % (10-50); Monocytes % 2 % (2-9); Neutrophils % 84 % (42-76); Platelet Estimate Normal; RBC Morphology Normal; Total Cells Counted 100
--- NOTE | 2020-02-11 07:55 | HMH.ACPN2 ---
Internal Medicine - PN: Subj *Date: 02/11/20 *Time: 07:55 Interval history: Had fever of 102.9 overnight. Still feels weak at times. Intermittent shortness of breath. Cough is minimally productive Exam Vital signs and Labs for Last 24 Hours: Temp Pulse Resp BP Pulse Ox 98.4 F 67 18 114/68 90 L 02/11/20 04:00 02/11/20 04:00 02/11/20 04:00 02/11/20 04:00 02/11/20 04:00 Laboratory Results - last 24 hr 02/10/20 05:58: Total Counted 100, Neutrophils % (Manual) 82 H, Band Neutrophils % 11.0 H, Lymphocytes % (Manual) 5 L, Monocytes % (Manual) 2, Platelet Estimate Normal, RBC Morphology Normal 02/10/20 16:55: Vancomycin Trough 7.0 02/11/20 05:50: WBC 12.6 H, RBC 3.63 L, Hgb 11.5 L, Hct 34.1 L, MCV 93.9, MCH 31.6 H, MCHC 33.7, RDW 14.5, Plt Count 219, MPV 8.4, Neut % (Auto) 85.0 H, Lymph % (Auto) 8.5 L, [place] % (Auto) 5.8, Eos % (Auto) 0.5, Baso % (Auto) 0.3, Neut # (Auto) 10.7 H, Lymph # (Auto) 1.1, [place] # (Auto) 0.7, Eos # (Auto) 0.1, Baso # (Auto) 0.0, Total Counted 100, Neutrophils % (Manual) 84 H, Lymphocytes % (Manual) 14, Monocytes % (Manual) 2, Platelet Estimate Normal, RBC Morphology Normal 02/11/20 05:50: Sodium 138, Potassium 3.7, Chloride 103, Carbon Dioxide 28, Anion Gap 10.7, BUN 21 H, Creatinine 1.10, Estimated Creat Clear 75, Estimated GFR 65, Est GFR ( Amer) 79 D, Glucose 167 H D, Calcium 8.7 I & O for Last 24 hours: Intake & Output 02/08/20 02/09/20 02/10/20 02/11/20 11:59 11:59 11:59 11:59 Intake Total 610 / 610 1523 / 1523 1330 / 1330 Output Total 450 / 450 Balance 610 / 610 1523 / 1523 880 / 880 Weight 213 lb 209 lb 3 oz 205 lb Microbiology Reports for the Last 24 Hours: Microbiology 02/09/20 11:13 Sputum - Expectorated Sputum Gram Stain - Final 02/09/20 11:13 Sputum - Expectorated Sputum Sputum Culture - Preliminary 02/08/20 15:07 Blood Blood Culture - Preliminary NO GROWTH AFTER 48 HOURS 02/08/20 15:07 Blood Blood Culture - Preliminary NO GROWTH AFTER 48 HOURS - Constitutional no acute distress - *Routine Respiratory Exam Present: rales (left base, less audible than previous day), distant breath sounds (left base) - *Routine Cardiovascular Exam Present: RRR Assessment and Plan (1) Pneumonia Current visit: Yes Status: Acute Qualifiers: Pneumonia type: due to unspecified organism Laterality: left Lung location: lower lobe of lung Qualified Code(s): J18.9 - Pneumonia, unspecified organism Category: Medical Code(s): J18.9 - Pneumonia, unspecified organism WBC better. Patient seems stronger. Continue Levaquin and Cefepime. DC vanc. Repeat blood culture if recurring high fevers (2) CAD (coronary artery disease) Current visit: No Status: Chronic Qualifiers: Coronary Disease-Associated Artery/Lesion type: [place] artery [place] vs. transplanted heart: [place] heart Associated angina: without angina Qualified Code(s): I25.10 - Atherosclerotic heart disease of [place] coronary artery without angina pectoris Category: Medical Code(s): I25.10 - Atherosclerotic heart disease of [place] coronary artery without angina pectoris (3) Diabetes mellitus Current visit: No Status: Chronic Qualifiers: Diabetes mellitus type: type 2 Diabetes mellitus custodial insulin use: without custodial use Diabetes mellitus complication status: without complication Qualified Code(s): E11.9 - Type 2 diabetes mellitus without complications Category: Medical Code(s): E11.9 - Type 2 diabetes mellitus without complications (4) Hypertensive heart disease without heart failure Current visit: No Status: Chronic Category: Medical Code(s): I11.9 - Hypertensive heart disease without heart failure (5) Old myocardial infarction Current visit: No Status: Chronic Category: Medical Code(s): I25.2 - Old myocardial infarction
--- NOTE | 2020-02-11 18:43 | PC.NURSE ---
Pt alert and oriented and able to make needs known. RR even and unlabored. Denies soa. CB in reach. Pt ambulates in room independently. Non skids in place. Cont of B&B. No c/o this shift. Lungs diminished in bases. S1,S2 noted. Will cont to mx this shift. VSS. IV changed to LFA, pt is SL. Family member at bedside this shift. Have educated on use of Incentive spirometer and pt has done well with this and has been up to chair all shift.
[2020-02-12 00:20] VITALS: O2SAT 91
[2020-02-12 04:00] VITALS: BP 134/74; PULSE 71; RESP 18; TEMP 36.8; O2SAT 93
--- NOTE | 2020-02-12 04:25 | PC.NURSE ---
Alert and oriented x4. Pt rested well with eyes closed this shift. Was up to chair at beginning of shift. PERRLA. Bilateral hand continuous process rotary drum tanner noted equal and strong. Cap refill < 3 seconds. Bilateral bases noted diminished t/o upon auscultation. Reports dry nonproductive cough intermittently. Encouraged use of incentive spirometer this shift while awake. Pt demonstrated appropriate use. Tolerated ra well with no c/o soa. RR noted even and unlabored. Bowel sounds noted active in all 4 quads upon auscultation. Tolerates independent amb well in room. Refused teds. VSS. Remains safe. Call light within reach. Will continue to monitor.
[2020-02-12 05:00] VITALS: BMI 29.3
[2020-02-12 07:30] LABS: Basophils % 0.4 % (0.1-2.0); Eosinophils # 0.1 K/mm3 (0.0-0.4); Eosinophils % 1.5 % (0.1-12.0); Hematocrit 31.9 % (42.0-52.0); Mean Corpuscular HGB Conc 34.6 g/dL (31.8-35.4); Mean Corpuscular Hemoglobin 31.5 pg (27.0-31.2); Mean Platelet Volume 8.7 fl (7.4-10.4); Monocytes # 0.6 K/mm3 (0.1-1.0); Monocytes % 6.7 % (1.7-9.3); Neutrophils # 7.6 K/mm3 (1.8-7.8); Neutrophils % 80.5 % (37.0-80.0); Platelet Count 246 K/mm3 (142-424); Red Blood Count 3.51 M/mm3 (4.60-6.20); Red Cell Distribution Width 14.5 % (11.5-17.5); White Blood Count 9.4 K/mm3 (4.8-10.8)
[2020-02-12 07:34] LABS: Anion Gap 10.6 mEq/L (5-15); Blood Urea Nitrogen 19 mg/dl (9-20); Calcium 8.6 mg/dl (8.4-10.2); Carbon Dioxide 29 mmol/L (22.0-30.0); Chloride 102 mmol/L (98-107); Creatinine Clearance Estimated 83 mL/min (50-200); Estimated Glomerular Filt Rate 73 ml/min (>60); GFR (African American) 88 ML/MIN (>60); Glucose 198 mg/dl (74-100); Potassium 3.6 mmoL/L (3.5-5.1); Sodium 138 mmol/L (136-145)
--- NOTE | 2020-02-12 07:56 | HMH.DCSUM ---
General - General Admission date:: 02/08/20 Discharge date: 02/12/20 HPI HPI: 74-year-old male with history of diabetes, hypertension, coronary artery disease presented to the emergency department with 2 days of weakness and chills. Patient tells me he was so weak he was not eating or drinking and was having a difficult time ambulating within his home. Work-up in the emergency department revealed a left lower lobe pneumonia. Patient denies shortness of breath, cough, orthopnea, paroxysmal nocturnal dyspnea in the ER and continues to deny these complaints this morning. He is maintained appropriate O2 sats on room air. Patient was admitted for inpatient treatment of pneumonia. As part of patient's work-up patient did receive coronavirus antibody testing and was IgG positive. He denies any recent respiratory infections. The cover the possibility of a superimposed bacterial pneumonia after a viral infection patient was started on vancomycin in addition to the Levaquin he was ordered. This morning the patient reports minimal improvement. He is sitting up in the bed in the recliner. He continues to denies shortness of breath or cough. He is continued to have fevers overnight that responded to Tylenol Hospital Course Hospital Course: Patient was admitted and started on broad-spectrum antibiotics for his left lower lobe pneumonia. White blood cell count was followed and trended down. Patient showed slow improvement on physical exam with persistence of rales and diminished breath sounds in the left base lasting until the day of discharge at which point aeration had improved in the left base. White blood cell count trended down. Patient's weakness improved slightly each day. Patient continued to have fevers for the first 3 days of hospitalization as high as 102.9. Prior to discharge patient had been fever free for nearly 36 hours. Patient was able to ambulate in the room without assistance. Prior to discharge discussion was had with the patient regarding his ability to care for himself at home and he felt comfortable performing ADLs. On February 11 patient was discharged home. He was not requiring any supplemental oxygen. He will finish her course of antibiotics. Patient will follow-up in the office later this week. Objective Vital signs: Temp Pulse Resp BP Pulse Ox 98.2 F 71 18 134/74 93 L 02/12/20 04:00 02/12/20 04:00 02/12/20 04:00 02/12/20 04:00 02/12/20 04:00 no acute distress - *Routine HEENT Exam Head: Present: normocephalic Eye: Present: EOMI, PERRL ENT: Present: mucous membranes moist - *Routine Neck Exam Present: supple - *Routine Respiratory Exam Comments: Faint rales left base with improved aeration to the left base compared to previous days - *Routine Cardiovascular Exam Present: RRR - *Routine Abdominal Exam Present: soft, normoactive bowel sounds. Absent: tenderness - *Routine Extremities Exam Absent: cyanosis, clubbing, edema - *Routine Skin Exam Present: warm. Absent: rash - Detailed Eye Exam Eyelids: Bilateral normal inspection Results Labs on day of discharge: Labs from last 24 hours 02/12/20 02/12/20 06:24 06:24 WBC 9.4 D RBC 3.51 L Hgb 11.0 L Hct 31.9 L MCV 91.0 MCH 31.5 H MCHC 34.6 RDW 14.5 Plt Count 246 MPV 8.7 Neut % (Auto) 80.5 H Lymph % (Auto) 11.0 [place] % (Auto) 6.7 Eos % (Auto) 1.5 Baso % (Auto) 0.4 Neut # (Auto) 7.6 Lymph # (Auto) 1.0 [place] # (Auto) 0.6 Eos # (Auto) 0.1 Baso # (Auto) 0.0 Sodium 138 Potassium 3.6 Chloride 102 Carbon Dioxide 29 Anion Gap 10.6 BUN 19 Creatinine 1.00 Estimated Creat Clear 83 Estimated GFR 73 Est GFR ( Amer) 88 Glucose 198 H Calcium 8.6 Preliminary micro results at discharge 02/08/20 15:07 Blood Culture - Preliminary Blood NO GROWTH AFTER 48 HOURS 02/08/20 15:07 Blood Culture - Preliminary Blood NO GROWTH
[2020-02-12 08:00] VITALS: BP 141/75; PULSE 67; RESP 19; TEMP 37.1; O2SAT 95
--- NOTE | 2020-02-12 13:17 | HMH.PHAINT ---
DISCHARGE COUNSELING COMPLETED ON PATIENT. ONLY NEW PRESCRIPTION IS FOR LEVOFLOXACIN. PATIENT IS TO CONTINUE ALL OTHER HOME MEDICATIONS. PATIENT VERBALIZED UNDERSTANDING AND HAD NO QUESTIONS AT THIS TIME. -ANILA MINER, YARAD
== END 2020-02-12 13:20 | disposition home or self-care (01) | DRG 195 ==
LOC: ER 17:03 → 2ND 20:07
PROVIDERS: Admitting Provider Internal Medicine Adolescent Medicine; Emergency Provider Emergency Medicine; PCP Family Medicine; Visit Provider Family Medicine
DX: J18.9 Pneumonia, unspecified organism (principal); E11.9 Type 2 diabetes mellitus without complications; I25.2 Old myocardial infarction; I25.10 Atherosclerotic heart disease of native coronary artery without angina pectoris; I11.9 Hypertensive heart disease without heart failure; I70.203 Unspecified atherosclerosis of native arteries of extremities, bilateral legs; Z79.84 Long term (current) use of oral hypoglycemic drugs; Z79.52 Long term (current) use of systemic steroids; Z86.19 Personal history of other infectious and parasitic diseases; Z79.899 Other long term (current) drug therapy
CPT/HCPCS: 36415; 71045; 80048; 80076; 80202; 81001; 83605; 83735; 83880; 84100; 84443; 84484; 85007; 85025; 86328; 87040; 87070; 87205; 93005; 94640; 96365; 96367; 99285; J1956; J2405; J3370; U0003

== ENCOUNTER → 2020-10-17 08:03 | Outpatient (CLI) | payer MEDICARE, OTHER, SELFPAY ==
--- NOTE | 2020-10-17 08:03 | US_ITS ---
PROCEDURE: US AORTA CLINICAL INDICATION: AAA COMPARISON: CT [id number] CT abdomen pelvis wo con from 07/03/2017 FINDINGS: There is mild dilatation the abdominal aorta measuring approximately 3 cm in AP dimension similar to the previous exam. There is some mild calcific plaque. Proximal common iliacs have an unremarkable appearance. IMPRESSION: Overall no change in the mild fusiform dilatation of the abdominal aorta at 3 cm Dictated by: Juan Pablo Foster MD 10/17/2020 14:14 Juan Pablo Foster MD in [place] 10/17/2020 14:14
--- NOTE | 2020-10-17 08:58 | CA_ITS ---
APPROVED REPORT EXAM: Comprehensive 2D, Doppler, and color-flow Echocardiogram Yarding And Folding Machine Operator: KANDICE Ornelas, RVS Ht: 5 ft 11 in Wt: 217lbs BSA: 2.18 BP: 142/71 mmHg Rhythm: Bradycardia Indications: SOA, cad, pad ,AAA, DM, HLD, HHD Echo Enhancing Agent Comments: Poor acoustic windows parasternally 2D Dimensions IVSd 1.37 cm LVEF (Visual) 63.20 % PWd 1.12 cm LA Volume 73.30 mL LVDd 4.35 cm LA Volume Index 33.60 mL/m2 (M/F) 16-34 LVDs 2.87 cm Aortic Root 3.14 cm Left Atrium 3.93 cm LVOT 2.12 cm (M/F) 1.5-2.5 M-Mode Dimensions LA Diam 3.81 cm (1.9-4.0) Ao Diam 4.26 cm (2.0-3.7) EPSs 0.89 cm TAPSE 1.93 (<1.7) LV Diastology E Decel Time 223.00 (160-240 msec) E/A Ratio 1.06 MED E' 7.00 (< 7 cm/sec) MED A' 9.50 cm/s E'/MED E' Ratio 14.67 (>14) Aortic Valve LVOT Max 120.00 (70-110 cm/s) LVOT VTI 27.76 cm AoV Peak Tomer. 163.00 (50-130 cm/s) AO Peak GR. 10.60 mmHg AO Mean GR. 4.90 (<5 mmHg) AO VTI 33.70 (18-25 cm) ALESSANDRA (VTI) 2.91 (2.5-4.5 cm2) Mitral Valve MV A Velocity 97.00 (40-130 cm/s) E/A Ratio 1.06 MV Decel. Time 223.00 (160-240 ms) Pulmonary Valve PV Peak Velocity 85.00 (50-150 cm/s) Tricuspid Valve TR P. Velocity 233.00 cm/s RAP Estimate 10.00 mmHg RVSP 31.70 mmHg Left Ventricle Left atrium is mildly enlarged, left ventricle is normal size, mild concentric left ventricle hypertrophy, visually estimated ejection fraction 50% with no regional wall motion abnormality, grade 2 diastolic dysfunction seen with tissue Doppler evidence of raise left atrial pressure. Right Ventricle Right atrium and right ventricle are mildly enlarged with normal contractility. Aortic Valve Aortic valve is thickened and calcified without Doppler evidence of aortic stenosis or aortic insufficiency. Mitral Valve Mitral valve has mitral calcification, leaflets are minimally thickened, there is no mitral stenosis, there is mild mitral regurgitation. Tricuspid Valve Tricuspid grossly normal, there is mild tricuspid regurgitation, tricuspid regurgitation jet velocity is inadequate for calculation of the right ventricular systolic pressure. Pulmonic Valve Pulmonic valve is poorly visualized. Great Vessels Aortic root is normal size. Pericardium No significant pericardial effusion noted. Conclusion 1. Biatrial enlargement, normal left ventricular size, mild concentric left ventricular hypertrophy, visually estimated ejection fraction 50% with no regional wall motion abnormality, grade 2 diastolic dysfunction seen without tissue Doppler evidence of raise left atrial pressure. 2. Mildly enlarged right ventricle with normal contractility. 3. Mild mitral and tricuspid regurgitation. 4. No significant pericardial effusion noted. Electronically signed by : Danny Eldridge, 10/18/2020 16:24:34
== END ==
PROVIDERS: PCP Family Medicine; Visit Provider Urology
DX: I71.4 Abdominal aortic aneurysm, without rupture (principal); R06.00 Dyspnea, unspecified; R06.01 Orthopnea; R06.02 Shortness of breath
CPT/HCPCS: 76770; 93306

== ENCOUNTER → 2021-08-16 10:42 | Outpatient (CLI) | payer MEDICARE, OTHER, SELFPAY ==
--- NOTE | 2021-08-16 10:50 | XR_ITS ---
FINAL REPORT CLINICAL HISTORY: COVID OUTPATIENT. sob COMPARISON: February 08, 2020 FINDINGS: A single portable view of the chest was obtained. There has been median sternotomy. The heart size and pulmonary vascularity are within normal limits. The mediastinum is within normal limits. There is a new right lung opacity consistent with pneumonia. There is improved aeration of the left lung since prior exam. The bony thorax is intact. IMPRESSION: Right lung pneumonia with improved aeration of the left lung. Reviewed, Interpreted and Dictated by Williams Reyes III, MD Transcribed by Benedict Mitchell Authenticated by Williams Reyes III, MD on 08/16/2021 12:09:52 PM [facility]
[2021-08-16 11:34] LABS: Basophils # 0.1 K/mm3 (0-0.2); Basophils % 0.9 % (0.1-2.0); Eosinophils # 0.2 K/mm3 (0.0-0.4); Eosinophils % 1.7 % (0.1-12.0); Hemoglobin 13.8 g/dL (14.1-18.0); Lymphocytes # 1.1 K/mm3 (0.7-4.5); Lymphocytes % 13.3 % (10-50); Mean Corpuscular Volume 96.8 fl (80-94); Mean Platelet Volume 8.9 fl (7.4-10.4); Monocytes # 0.7 K/mm3 (0.1-1.0); Neutrophils # 6.5 K/mm3 (1.8-7.8); Neutrophils % 76.1 % (37.0-80.0); Platelet Count 294 K/mm3 (142-424); Red Blood Count 4.44 M/mm3 (4.60-6.20); Red Cell Distribution Width 14.3 % (11.5-17.5); White Blood Count 8.6 K/mm3 (4.8-10.8)
[2021-08-16 12:19] LABS: Chloride 99 mmol/L (98-107)
[2021-08-16 12:20] LABS: Potassium 4.7 mmoL/L (3.5-5.1); Sodium 135 mmol/L (136-145)
[2021-08-16 12:22] LABS: Alanine Aminotransferase 22 U/L (12-78); Albumin Level 3.7 g/dl (3.5-5.0); Albumin/Globulin Ratio 1.4 (1.1-1.8); Alkaline Phosphatase 119 U/L (38-126); Anion Gap 15.7 mEq/L (5-15); Aspartate Amino Transferase 32 U/L (17-59); Bilirubin,Total 1.4 mg/dl (0.2-1.3); Blood Urea Nitrogen 17 mg/dl (9-20); Calcium 8.2 mg/dl (8.4-10.2); Carbon Dioxide 25 mmol/L (22.0-30.0); Estimated Glomerular Filt Rate 72 ml/min (>60); GFR (African American) 88 ML/MIN (>60); Globulin 2.7 g/dL (1.3-3.2); Glucose 111 mg/dl (74-100); Total Protein,Serum 6.4 g/dl (6.3-8.2)
== END ==
PROVIDERS: PCP Nurse Practitioner Family; Visit Provider Nurse Practitioner Family
DX: U07.1 COVID-19 (principal); R06.02 Shortness of breath
CPT/HCPCS: 36415; 71045; 80053; 85025

== ENCOUNTER → 2021-08-30 14:31 | Outpatient (CLI) | payer MEDICARE, OTHER, SELFPAY ==
--- NOTE | 2021-08-30 14:44 | XR_ITS ---
FINAL REPORT CLINICAL HISTORY: F/U PNEUMONIA RIGHT LUNG DUE TO INFECTIOUS ORGANISM. COMPARISON: August 16, 2021 FINDINGS: Two views of the chest were obtained. There is evidence of median sternotomy. The heart size and pulmonary vascularity are within normal limits. The mediastinum is normal. There is partially improved right lung opacity consistent with improved pneumonia. There is no pneumothorax. The bony thorax is intact. IMPRESSION: Partially improved right lung pneumonia. Reviewed, Interpreted and Dictated by Williams Reyes III, MD Transcribed by Benedict Mitchell Authenticated by Williams Reyes III, MD on 08/30/2021 03:55:14 PM [facility]
== END ==
PROVIDERS: PCP Family Medicine; Visit Provider Nurse Practitioner Family
DX: J18.9 Pneumonia, unspecified organism (principal); U09.9 Post COVID-19 condition, unspecified
CPT/HCPCS: 71046

== ENCOUNTER → 2021-10-15 07:33 | Outpatient (CLI) | payer MEDICARE, OTHER, SELFPAY ==
--- NOTE | 2021-10-15 07:34 | US_ITS ---
FINAL REPORT CLINICAL HISTORY: AAA COMPARISON: October 17, 2020 FINDINGS: Sonographic images were obtained of the abdominal aorta. The abdominal aorta is difficult to evaluate secondary to mural thrombus but measures up to 3.8 cm previously measured 3.4 cm. The common iliac arteries are within normal limits. IMPRESSION: Suboptimally visualized 3.8 cm abdominal aortic aneurysm. CTA of the abdomen could further evaluate. Reviewed, Interpreted and Dictated by Williams Reyes III, MD Transcribed by Benedict Mitchell Authenticated by Williams Reyes III, MD on 10/15/2021 09:49:32 AM [facility]
== END ==
PROVIDERS: PCP Family Medicine; Visit Provider Physician Assistant
DX: I71.4 Abdominal aortic aneurysm, without rupture (principal)
CPT/HCPCS: 76770

== ENCOUNTER → 2021-10-22 07:51 | Outpatient (CLI) | payer MEDICARE, OTHER, SELFPAY ==
[2021-10-22 08:30] LABS: Blood Urea Nitrogen 20 mg/dl (9-20); Estimated Glomerular Filt Rate 54 ml/min (>60); GFR (African American) 65 ML/MIN (>60)
--- NOTE | 2021-10-22 08:37 | CT_ITS ---
FINAL REPORT TECHNIQUE: Pre-and postcontrast images of the abdomen were performed by computed tomography. Extensive 3-D reconstruction images were performed. A CTA was performed. This study was performed with techniques to keep radiation doses as low as reasonably achievable (ALARA). Individualized dose reduction techniques using automated exposure control or adjustment of mA and/or kV according to the patient''s size were employed. CLINICAL HISTORY: AAA COMPARISON: July 03, 2017 FINDINGS: ABDOMEN: There is mild bibasilar scarring. Precontrast images demonstrate no evidence of nephrolithiasis. There are multiple bilateral simple renal cysts. No adrenal masses are identified. The liver, spleen and pancreas are unremarkable. The gallbladder is present. There is partially imaged sigmoid diverticulosis. CTA: There is abdominal aortic aneurysmal dilatation measuring 3.4 cm which is stable. The SMA, celiac axis, and GEM are patent. There is no significant stenosis or calcification. The renal arteries are patent bilaterally. There is aneurysmal dilatation of the right common iliac artery measuring 1.9 cm which is stable. There is aneurysmal dilatation of the left common iliac artery measuring 1.8 cm which is stable. 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 IMPRESSION: Abdominal aortic aneurysm measuring 3.4 cm, stable. 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 Multiple bilateral simple renal cysts. No follow-up recommended. Reviewed, Interpreted and Dictated by Williams Reyes III, MD Transcribed by eLah Cuevas Authenticated by Williams Reyes III, MD on 10/22/2021 11:03:23 AM [facility]
== END ==
PROVIDERS: PCP Family Medicine; Visit Provider Physician Assistant
DX: I71.4 Abdominal aortic aneurysm, without rupture (principal)
CPT/HCPCS: 36415; 74175; 82565; 84520; Q9967

== ENCOUNTER 2024-02-26 12:14 | Outpatient (CLI) | payer MEDICARE, OTHER, SELFPAY ==
--- NOTE | 2024-02-26 12:15 | CT_ITS ---
FINAL REPORT TECHNIQUE: Pre-and postcontrast images of the abdomen and pelvis were performed by computed tomography. Extensive 3-D reconstruction images were performed. A CTA was performed. This study was performed with techniques to keep radiation doses as low as reasonably achievable (ALARA). Individualized dose reduction techniques using automated exposure control or adjustment of mA and/or kV according to the patient's size were employed. CLINICAL HISTORY: AAA, iliac aneurysms COMPARISON: 07/03/2017 FINDINGS: ABDOMEN AND PELVIS: Mild scarring is present in the lung bases. Multiple small gallstones are identified in the gallbladder. Precontrast images demonstrate no evidence of nephrolithiasis. Multiple bilateral renal cysts are noted. No adrenal masses are identified. The liver, spleen and pancreas are unremarkable. The appendix is not well-seen on this examination. There is mild bladder wall thickening noted, likely inflammatory. There is sclerosis in the femoral heads bilaterally, more prominent on the right than on the left, worrisome for avascular necrosis. Widespread vascular calcifications are noted. CTA: There is an infrarenal abdominal aortic aneurysm, which measures 3.5 cm in greatest diameter. The celiac axis and superior mesenteric artery are normal in caliber. The GEM is patent. There is calcified plaque at the origin of the right renal artery which produces mild stenosis. There is no significant stenosis in the left renal artery. The right common iliac artery aneurysm measures 20 mm in size, stable. The left common iliac aneurysm measures 20 mm, slightly larger than seen in the prior exam. IMPRESSION: Stable infrarenal abdominal aortic aneurysm. The right common iliac artery aneurysm is also stable, while the left common iliac aneurysm is slightly larger, is 20 mm in diameter and was previously 19 mm. There are are sclerotic changes in the femoral heads, greater on the right than on the left, worrisome for avascular necrosis. Small gallstones are present in the gallbladder. Reviewed, Interpreted and Dictated by Williams Reyes III, MD Transcribed by Lisa Lopez Authenticated and [facility][1]
[2024-02-26 12:43] LABS: Blood Urea Nitrogen 14 mg/dl (9-20); Estimated Glomerular Filt Rate 64 ml/min (>60); GFR (African American) 78 ML/MIN (>60)
[2024-02-26] MEDS: 0.9 % SODIUM CHLORIDE 50 ML VIAL IV (13:16)
[2024-02-26] MEDS: IOPAMIDOL-370 (76%);100ML BOTTLE 100 ML IV (13:16)
[2024-02-26] MEDS: SODIUM CHLORIDE 0.9% 10ML SYR (RAD ONLY) 10 ML IV (13:16)
== END 2024-02-26 23:59 | disposition home or self-care (01) ==
PROVIDERS: PCP Family Medicine; Visit Provider Nurse Practitioner
DX: I71.40 Abdominal aortic aneurysm, without rupture, unspecified (principal); I72.3 Aneurysm of iliac artery
CPT/HCPCS: 36415; 74174; 82565; 84520; Q9967

== ENCOUNTER 2024-03-02 13:46 | Outpatient (CLI) | payer MEDICARE, OTHER, SELFPAY ==
--- NOTE | 2024-03-02 13:49 | XR_ITS ---
FINAL REPORT CLINICAL HISTORY: left hip pain COMPARISON: None FINDINGS: LEFT HIP: Two views of the left hip demonstrate no acute fracture or dislocation. The joint space is preserved. Femoral head has a normal smooth contour. There are [id number] vascular calcifications. IMPRESSION: No acute bony abnormality. Reviewed, Interpreted and Dictated by Lokesh Vaughn MD Transcribed by María Martins Authenticated and [facility]
--- NOTE | 2024-03-02 13:49 | XR_ITS ---
FINAL REPORT CLINICAL HISTORY: right hip pain COMPARISON: None FINDINGS: RIGHT HIP Two views of the right hip with an AP view of the pelvis demonstrate no acute fracture or dislocation. The hip joint space is preserved. The femoral heads have normal smooth contours. There are [id number] vascular calcifications. IMPRESSION: No acute bony abnormality. Reviewed, Interpreted and Dictated by Lokesh Vaughn MD Transcribed by María Martins Authenticated and [facility]
== END 2024-03-02 23:59 | disposition home or self-care (01) ==
LOC: RAD 13:46
PROVIDERS: PCP Family Medicine; Visit Provider Orthopaedic Surgery
DX: M25.551 Pain in right hip (principal); M25.552 Pain in left hip
CPT/HCPCS: 73502

== ENCOUNTER 2024-05-06 11:39 | Emergency (ER) | payer MEDICARE, OTHER, SELFPAY ==
[2024-05-06 11:40] VITALS: BP 198/92; PULSE 59; RESP 17; TEMP 36.4; O2SAT 98; BMI 28.7
--- NOTE | 2024-05-06 12:01 | HMH.EDGENADL ---
Discharge Plan Prescriptions Prescriptions: No Action sildenafil 100 mg tablet 100 mg PO DAILY PRN Patient Comments: TAKE ONE TABLET BY MOUTH EVERY DAY NEEDED carvedilol 12.5 mg tablet 12.5 mg PO BID 90 Days Qty: 180 3RF aspirin 81 mg tablet,delayed release (DR/EC) See Rx Instructions .ROUTE .COMPLEX Qty: 30 2RF Dose Instruction: TAKE ONE TABLET BY MOUTH EVERY DAY Rx Instructions: TAKE ONE TABLET BY MOUTH EVERY DAY atorvastatin 80 mg tablet See Rx Instructions .ROUTE .COMPLEX Qty: 90 3RF Dose Instruction: TAKE ONE TABLET BY MOUTH EVERY DAY FOR cholesterol Rx Instructions: TAKE ONE TABLET BY MOUTH EVERY DAY FOR cholesterol Referrals Follow up/Referrals: Ashleigh Alejo MD [Primary Care Provider] - See instructions Activity Restrictions/Add. Instructions Additional Instructions/Restrictions: Your symptoms are consistent with traumatic ecchymosis of the left thigh which as discussed is just blood collection under the soft tissues secondary to the trauma that you had. This is not consistent with a deep vein thrombosis or a clot. No further emergent medical intervention or diagnostic testing is needed right now. You may elevate this area and use a compression if you have any associated symptoms associate with it. Clinical Impressions Clinical Impression: Traumatic ecchymosis of left thigh Print Language Print Language: Pashto Discharge ED Provider: Arturo Owens General Adult HPI General Stated complaint: left leg pain, bruising Time Seen by Provider: 05/06/24 11:54 History of Present Illness HPI narrative: Patient is an 78-year-old male presents today with left medial thigh discoloration. States that about a week ago he walked into the corner of a table with significant trauma to the superior lateral aspect of his upper thigh and a few days later noticed some significant ecchymosis in the medial and dependent portion of his left thigh. No significant pain swelling etc. outside of the localized area where he was hit. Someone convince him this may be a clot which concerned him and subsequently came to the emergency department. He has been able to ambulate without any difficulty is not on any blood thinners or anticoagulants and has not had any expansion of this clinically. Related Data Home Medications ?Medication ?Instructions ?Recorded ?Confirmed sildenafil 100 mg tablet 100 mg PO DAILY PRN 02/03/24 02/17/24 Previous Rx's ?Medication ?Instructions ?Recorded aspirin 81 mg tablet,delayed See Rx Instructions .Route 05/01/24 release .COMPLEX #30 tabs atorvastatin 80 mg tablet See Rx Instructions .Route 01/18/24 .COMPLEX #90 tabs carvedilol 12.5 mg tablet 12.5 mg PO BID 90 days #180 tabs 02/03/24 Allergies Allergy/AdvReac Type Severity Reaction Status Date / Time No Known Allergies Allergy Verified 03/02/24 14:28 [facility] Disclaimer: The information contained in this section may have been updated after the patient was seen, as this information can be updated by other users. Medical History Bilateral iliac artery aneurysm Hypertension CAD (coronary artery disease) AAA (abdominal aortic aneurysm) PAD (peripheral artery disease) Angina, class II Coronary arteriosclerosis Diabetes mellitus Hyperlipidemia Hypertensive heart disease without heart failure Calculus of kidney Social History Smoking Status: Never smoker alcohol intake: current alcohol intake frequency: holidays/special occasions only substance use type: denies use current occupational status: retired household members: none housing: house current occupational exposures/hazards: No caffeine: Yes Other Medical History Have you received the Flu Vaccine for this season: No Have you received the Pneumonia Vaccine: Yes ROS Obtained: Yes All systems reviewed & no additional complaints except as documented Physical Exam General General appearance: alert Respiratory Respiratory exam: Present normal lung sounds bilaterally Cardiovascular Cardiovascular exam: Present regular rate Extremities Exam Extremities exam: Present other (Neurovascular exam is normal there is ecchymosis on the medial aspect and dependent portions of the left upper thigh he is focally tender in the superior lateral aspect of the thigh itself no significant hematoma etc.) Neurological Exam Neurological exam: Present alert and oriented X3 Medical Decision Making Medical Records Screening: Per USPSTF and CDC recommendations, given the prevalence of disease in our region, it is our hospital?s policy to screen for HIV and viral Hepatitis for all patients aged 18 and over and those with ongoing risk factors. Blaise Inquiry Pt receiving controlled substance: No Medical Decision Narrative: 78-year-old presenting today 1 week status post an injury where he walked into the corner of a table with subsequent ecchymosis in the dependent and medial portion of the leg where the injury happened. This is not consistent with a DVT. His exam is otherwise normal not concerned about a bony injury or expanding hematoma or large vessel or arterial injury. No further workup is needed he was reassured and discharged in stable condition Critical Care Critical Care Time Critical Care Time: No
[2024-05-06 12:04] VITALS: BP 190/98; PULSE 58; RESP 17; TEMP 36.4; O2SAT 98
== END 2024-05-06 12:06 | disposition home or self-care (01) ==
PROVIDERS: Emergency Provider Student in an Organized Health Care Education/Training Program; PCP Family Medicine
DX: S70.12XA Contusion of left thigh, initial encounter (principal); M79.652 Pain in left thigh; W22.8XXA Striking against or struck by other objects, initial encounter; Y93.89 Activity, other specified; Y92.008 Other place in unspecified non-institutional (private) residence as the place of occurrence of the external cause
CPT/HCPCS: 99281

== ENCOUNTER 2024-05-17 09:57 | Outpatient (POV) | payer MEDICARE, OTHER, SELFPAY | END 2024-05-17 23:59 | disposition home or self-care (01) | LOC: SC 05-18 06:57 | PROVIDERS: Visit Provider Dermatology | DX: Z00.00 Encounter for general adult medical examination without abnormal findings (principal) ==